=== PATIENT | male | born 1955 | race Caucasian/White ===

== ENCOUNTER 2022-04-22 16:42 | Emergency (ER) | payer MEDICARE, MEDICAID ==
[~2022-04-22] VITALS: Ht 172.7 cm; Wt 75.0 kg
[2022-04-22 16:53] VITALS: BP 158/92
[2022-04-22] MEDS ORDERED: RIVA20TA MT (17:02)
== END 2022-04-22 17:19 | disposition home or self-care (01) ==
LOC: ER 16:42
DX: Z76.0 Encounter for issue of repeat prescription (principal); Z86.711 Personal history of pulmonary embolism; Z79.01 Long term (current) use of anticoagulants
CPT/HCPCS: 99281; 99283